=== PATIENT | male | born 1970 | race Caucasian/White ===

== ENCOUNTER → 2024-02-11 | Outpatient (CLI) | payer BC, SELFPAY ==
--- NOTE | 2024-02-11 13:28 | ECHOCS_ITS ---
Reason For Study: MURMUR Procedure This was a 2D Doppler, Color Flow transthoracic echocardiogram. The study was technically difficult. Contrast injection was performed. Exam performed in department. Left Ventricle Normal LV size. Left ventricular systolic function is normal. The estimated ejection fraction is 55 %. No regional wall motion abnormalities noted. Right Ventricle Normal RV size. Normal systolic function. Atria Normal left atrium. Normal right atrium. Mitral Valve Normal mitral valve. Tricuspid Valve Normal tricuspid valve. Aortic Valve Trisinus/trileaflet aortic valve. Peak aortic valve gradient 15 mmHg. Mean aortic valve gradient 8 mmHg. Mild aortic stenosis. Pulmonic Valve The pulmonic valve is not well visualized. Great Vessels Normal aortic root. The pulmonary artery is normal size. Normal inferior vena cava. Pericardium/Pleural No pericardial effusion. Medication 22 gauge I.V. with prn adaptor inserted into right arm. Diluted definity 3ml given slow IV push to enhance endocardial definition. MMode/2D Measurements & Calculations LVIDd: 4.6 cm IVSd: 1.3 cm Ao root diam: 3.4 cm LVIDs: 3.4 cm LVPWd: 1.3 cm FS: 27.1 % LAV(MOD-bp): 42.7 ml LVAd ap4: 37.0 cm2 SV(MOD-sp4): 65.3 ml LAV(MOD-bp) Indexed: 19.9 ml/m2 LVLd ap4: 9.3 cm LAV(MOD-sp2): 57.7 ml EDV(MOD-sp4): 118.8 ml LAV(MOD-sp4): 33.2 ml EDV(sp4-el): 125.2 ml LVAs ap4: 23.0 cm2 LVLs ap4: 8.0 cm ESV(MOD-sp4): 53.6 ml ESV(sp4-el): 56.2 ml EF(MOD-sp4): 54.9 % EF(sp4-el): 55.1 % SV(sp4-el): 69.0 ml LA A4 area: 14.8 cm2 LA dimension(2D): 4.0 cm RA A4 area: 11.5 cm2 Time Measurements MV dec time: 0.17 sec Doppler Measurements & Calculations MV E max manish: 63.5 cm/sec Lat Peak E' Manish: 4.7 cm/sec Med Peak E' Manish: 8.6 cm/sec MV A max manish: 45.8 cm/sec E/E' lat: 13.4 E/E' med: 7.4 MV E/A: 1.4 MV V2 max: 72.5 cm/sec MV dec slope: 432.7 cm/sec2 Ao V2 max: 192.1 cm/sec MV max P.1 mmHg Ao max P.8 mmHg MV V2 mean: 46.3 cm/sec Ao V2 mean: 136.3 cm/sec MV mean P.99 mmHg Ao mean P.4 mmHg MV V2 VTI: 25.4 cm Ao V2 VTI: 46.5 cm AV (velocity ratio): 0.68 LV V1 max: 132.3 cm/sec PA V2 max: 90.3 cm/sec LV V1 max P.0 mmHg PA V2 mean: 65.8 cm/sec LV V1 mean P.3 mmHg LV V1 mean: 98.5 cm/sec LV V1 VTI: 31.5 cm ECHO/Echo Complete W/ Contrast Interpretation Summary Normal LV size. Left ventricular systolic function is normal. The estimated ejection fraction is 55 %. Mean aortic valve gradient 8 mmHg. Mild aortic stenosis. Contrast injection was performed. Ordering Physician: Sage Callahan Referring Physician: Sage Callahan Performed By: Megan Zambrano RCS
== END | disposition home or self-care (01) ==
PROVIDERS: PCP Student in an Organized Health Care Education/Training Program; Referring Provider Internal Medicine Cardiovascular Disease; Visit Provider Internal Medicine Cardiovascular Disease
DX: I35.1 Nonrheumatic aortic (valve) insufficiency (principal); R01.1 Cardiac murmur, unspecified
CPT/HCPCS: 93306; Q9957; A4216; C8929